=== PATIENT | male | born 1940 | race Asian ===

== ENCOUNTER 2024-01-03 17:57 | Emergency (ER) | payer MEDICARE, SELFPAY ==
[2024-01-03 18:01] VITALS: BP 137/99
--- NOTE | 2024-01-03 19:51 | ED.GENMED ---
History of Present Illness
General
Chief Complaint: Musculo-Skeletal Complaint
Time Seen by Provider: 01/03/24 18:20
Travel History
Have you had any contact with someone who has COVID-19?: No
Do you have any symptoms of coronavirus? Fever > 100 degrees, chills, cough, shortness of breath, sore throat, loss of taste or smell, muscle aches, or headache?: No
History of Present Illness
History of Present Illness:
20-year-old male presents emergency department for evaluation of right foot pain and swelling after falling approximately 3 feet off his deck and landing directly on the foot. He is unable to bear weight due to pain. Denies any knee or hip pain.
Review of Systems
Review of Systems
Allergies reviewed?: Yes
All Other Systems: ROS reviewed and negative except as documented in HPI and ROS
Phy Exam
Physical Exam
Physical Exam:
GEN: Well appearing, NAD, WDWN
HEENT: Oral mucosa moist, no scleral icterus
Cardiac: Regular rate
Lung: No respiratory distress, no tachypnea
MSK: Massive swelling and ecchymosis of the right midfoot and hindfoot consistent with a calcaneal fracture
Skin: Good color, no pallor or jaundice, no rashes
Neuro: AO x3, moves all extremities freely
Psych: Calm, cooperative
Course
Orders/Labs/Results
Orders:
Orders
01/03/24 18:05
CR Ankle - Right Min 3 Views * Urgent
Comment:
Reason For Exam: fall
Foot, Right 3 View [CR Foot - Right Min 3 Views] Urgent
Comment:
Reason For Exam: fall
01/03/24 18:31
Lower Ext Right wo Contrast CT [CT Lower Ext W/o Iv Cont Rt] Urgent
Comment:
Reason For Exam: calcaneus fracture
Vital Signs
Initial and Last Documented VS:
Initial Vital Signs
Temp Pulse Resp BP Pulse Ox
98.7 F 87 16 137/99 99
01/03/24 18:01 01/03/24 18:01 01/03/24 18:01 01/03/24 18:01 01/03/24 18:01
Last Documented Vital Signs
Temp Pulse Resp BP Pulse Ox
98.7 F 87 16 137/99 99
01/03/24 18:01 01/03/24 18:01 01/03/24 18:01 01/03/24 18:01 01/03/24 18:01
MDM/Problems Addressed
MDM/Problems Addressed:
X-rays confirm calcaneal fracture, CT was obtained for surgical staging standpoint for orthopedic follow-up purposes. Patient was placed in a sugar-tong with posterior short leg splint by myself, advised strict nonweightbearing status. The patient
does have a walker and wheelchair and is capable of first-floor living at home and is comfortable with discharge. Indicate the findings to on-call orthopedics to help with facilitation of outpatient follow-up with foot and ankle surgery.
*Critical Care Note
Total Time (30-74mins, 75-104mins- exclusive of procedures): Not Applicable
ED Attending Note
-
Portions of this chart may have been created with voice recognition software.� Occasional wrong word or��sound alike� substitutions may have occurred due to the inherent limitations of voice recognition software.
Discharge Plan
Departure
Patient Disposition: Home (Routine Discharge)
Date of Disposition: 01/03/24
Time of Disposition: 19:51
Patient with high blood pressure during this ER visit?: No
Discharge Problem:
Calcaneus fracture, right
Instructions: Heel Fracture (DC)
Referrals:
Dez Lopez DPM [Active] -
Fina Marvin MD [Family Provider] -
Activity Restrictions/Additional Instructions:
ELEVATE ELEVATE ELEVATE!
Decreasing the swelling is extremely important
Follow up with orthopedics HONEY
NO WEIGHT BEARING AT ANY TIME
Interventions
Interventions:
*General Assessment Last Done: 01/03/24 18:01
ED- Fall Risk Assessment Last Done: 01/03/24 20:20
*ED COVID-19 Vaccine History Last Done: 01/03/24 20:20
*Nursing Disposition Last Done: 01/03/24 20:20
ED-Musculoskeletal Assessment Last Done: 01/03/24 18:45
Discharge Date and Time
Discharge Date/Time: 01/03/24 20:21
== END 2024-01-03 20:21 | disposition home or self-care (01) ==
LOC: EMR 17:57
PROVIDERS: EMERGENCY PHYSICIAN Emergency Medicine; FAMILY PHYSICIAN Family Medicine
DX: S92.001A Unspecified fracture of right calcaneus, initial encounter for closed fracture (principal); W19.XXXA Unspecified fall, initial encounter
CPT/HCPCS: 99284; 29515; 73610; 73630; 73700